=== PATIENT | male | born 1955 | race Caucasian/White ===

== ENCOUNTER 2016-12-13 18:16 | Emergency (ER) | payer MEDICAID ==
[~2016-12-13] VITALS: Ht 172.7 cm; Wt 65.5 kg
[2016-12-13 18:53] LABS: IMMATURE GRANULOCYTES 0.2 % (0.0-1.0); MEAN CELL VOLUME 89.9 fL CALC (80.0-100.0); MEAN CORPUSCULAR HGB 31.5 pG CALC (26.0-32.0); NEUT# 6.5 thou/uL (1.82-7.42); RED BLOOD COUNT 4.45 mill/uL (4.70-6.10); RED CELL DISTRI WIDTH 12.9 % (11.5-15.5)
[2016-12-13 19:04] LABS: ALBUMIN 4.4 g/dL (3.2-5.0); ALKALINE PHOSPHATASE 68 u/l (38-126); ANION GAP 16 (6-22 (CALC)); BILIRUBIN, TOTAL 0.4 mg/dL (0.0-1.4); BUN 10 mg/dL (9-20); BUN/CREATININE RATIO 15 (12-20 (CALC)); CALCIUM 9.5 mg/dL (8.4-10.2); CARBON DIOXIDE 26 mmol/l (22-30); CHLORIDE 106 mmol/l (95-108); CREATININE 0.7 mg/dL (0.7-1.3); GFR > 60 ML/MIN (>=60 (CALC)); GFR FOR AFR.AMER. > 60 ML/MIN (>=60 (CALC)); GLUCOSE 101 mg/dL (75-110); LIPASE 62 u/l (23-300); POTASSIUM 3.6 mmol/l (3.5-5.1); SGOT/AST 29 u/l (17-59); SGPT/ALT 27 u/l (21-72); SODIUM 144 mmol/l (137-146); TOTAL PROTEIN 7.8 g/dL (6.3-8.2)
[2016-12-13] MEDS ORDERED: LISINOPRIL20 MG PO (19:07)
[2016-12-13] MEDS ORDERED: COREG3.125 MG PO (19:07)
[2016-12-13] MEDS ORDERED: AMLODIPINE10 MG PO (19:08)
[2016-12-13] MEDS ORDERED: LIPITOR40 M1 PO (19:10)
[2016-12-13] MEDS ORDERED: OXYCONTIN15 MG PO (19:11)
[2016-12-13] MEDS ORDERED: OXYCODONE HCL15 MG PO (19:11)
[2016-12-13 19:16] LABS: MYOGLOBIN 46 ng/mL (0 - 121)
[2016-12-13] MEDS ORDERED: ULTRAM50 M1 PO (19:30)
[2016-12-13] MEDS ORDERED: FLEXERIL PO (19:30)
[2016-12-13 20:03] VITALS: BP 161/100
== END 2016-12-13 20:00 | disposition home or self-care (01) | DRG 556 ==
LOC: ED 18:16
PROVIDERS: Emergency Medicine
DX: M79.1 Myalgia (principal); G89.29 Other chronic pain